=== PATIENT | female | born 1965 | race Caucasian/White ===

== ENCOUNTER 2018-06-22 09:31 | Day surgery (SDC) | payer OTHER ==
[~2018-06-22 09:31] MED LIST: LIDOCAINE 2% (SDV) 5 ML INJ
[2018-06-22] MEDS ORDERED: PROPOFOL 40 ML (10:22)
[2018-06-22] MEDS ORDERED: ONDANSETRON 4 MG INJ IV (10:30)
[2018-06-22] MEDS ORDERED: HYDROmorphONE 1 MG/5 ML IV SYRINGE IV (10:30)
[2018-06-22] MEDS ORDERED: OXYCODONE/ACETAMINOPHEN (5/325) TAB PO (10:30)
[2018-06-22] MEDS ORDERED: FENTAnyl 50 MCG/ML VIAL IV (10:30)
[2018-06-22] MEDS ORDERED: EPHEDrine 25 MG/5 ML SYG (11:38)
== END 2018-06-22 15:25 | disposition home or self-care (01) ==
LOC: GIL 09:31
DX: Z12.11 Encounter for screening for malignant neoplasm of colon (principal); D12.5 Benign neoplasm of sigmoid colon; K64.4 Residual hemorrhoidal skin tags
CPT/HCPCS: 45385; 88305

== ENCOUNTER 2018-11-21 10:30 | Day surgery (SDC) | payer OTHER ==
[2018-11-21] MEDS ORDERED: NA PHOSPHATE/BIPHOS 133 ML ENEMA PR (11:03)
[2018-11-21] MEDS ORDERED: FENTAnyl 50 MCG/ML VIAL (12:15)
[2018-11-21] MEDS ORDERED: PROPOFOL 20 ML (12:15)
== END 2018-11-21 13:54 | disposition home or self-care (01) ==
LOC: GIL 10:30
DX: K63.89 Other specified diseases of intestine (principal); F17.200 Nicotine dependence, unspecified, uncomplicated
CPT/HCPCS: 45378